=== PATIENT | female | born 1995 | race African-American/Black ===

== ENCOUNTER 2017-08-01 17:49 | Emergency (ER) | payer OTHER ==
[~2017-08-01] VITALS: Ht 162.6 cm; Wt 50.8 kg
== END 2017-08-01 18:45 | disposition home or self-care (01) ==
LOC: CED 17:49 → CFTX 17:49
DX: S00.93XA Contusion of unspecified part of head, initial encounter (principal); S46.911A Strain of unspecified muscle, fascia and tendon at shoulder and upper arm level, right arm, initial encounter; S46.912A Strain of unspecified muscle, fascia and tendon at shoulder and upper arm level, left arm, initial encounter; W50.0XXA Accidental hit or strike by another person, initial encounter; Y92.69 Other specified industrial and construction area as the place of occurrence of the external cause; Y99.0 Civilian activity done for income or pay; F17.210 Nicotine dependence, cigarettes, uncomplicated
CPT/HCPCS: 99283